=== PATIENT | female | born 1985 | race Caucasian/White ===

== ENCOUNTER 2021-12-06 11:29 | Inpatient (IN) | payer MEDICAID ==
[~2021-12-06] VITALS: Ht 160.1 cm; Wt 95.5 kg
[~2021-12-06 11:29] MED LIST: MOTRIN 800800 MG/TAB PO; PERCOCET 325 MG1 TA2 PO
[2021-12-07] VITALS (22 sets, daily range): BP systolic 104–151; BP diastolic 57–96; PULSE 80–100; TEMP 97–97.9
[2021-12-07] MEDS ORDERED: PRENATAL TABLET PO (06:50)
[2021-12-07 06:53] LABS: BASO % 0.2 % (0.0-2.0); EOS # 0.1 K/mm3 (0.0-0.7); EOS % 0.5 % (0.0-4.0); GRAN # 8.5 K/mm3 (1.4-6.5); HEMATOCRIT 38.7 % (37.0-47.0); HEMOGLOBIN 13.4 g/dl (12.5-16.0); LYMPH % 17.4 % (20.0-51.0); MEAN CELL VOLUME 86 fl (80.0-100.0); MEAN CORPUSCULAR HEMOGLOBIN 30 pg (27-31); MEAN CORPUSCULAR HGB CONC 35 g/dl (33.0-37.0); MEAN PLATELET VOLUME 9.8 fl (7.4-10.4); MONO # 0.9 K/mm3 (0.1-0.6); PLATELET COUNT 245 K/mm3 (130-400); RED BLOOD COUNT 4.49 M/mm3 (4.10-5.30)
[2021-12-08] VITALS: BP 143/72; PULSE 96; TEMP 98.5
[2021-12-08 04:18] VITALS: BP 122/73; PULSE 86; TEMP 98.4
[2021-12-08 08:15] VITALS: BP 136/79; PULSE 91; TEMP 98.3
[2021-12-08] MEDS ORDERED: IBU600 MG PO (08:17)
[2021-12-08] MEDS ORDERED: ROXICODONE 55 MG/TAB PO (08:18)
--- NOTE | 2021-12-08 09:05 | NUR ---
Initial visit; Parents thanked B[employer] for looking in on them and offering congratulations and God's blessings for the of their daughter. B[facility] thanked family for choosing [place].
[2021-12-08 17:16] VITALS: BP 129/84; PULSE 94; TEMP 97.9
[2021-12-08 21:30] VITALS: BP 133/89; PULSE 86; TEMP 97.7
[2021-12-09 08:30] VITALS: BP 123/79; PULSE 84; TEMP 98.2
== END 2021-12-09 11:30 | disposition home or self-care (01) | DRG 788 ==
LOC: OB 12-07 05:34
PROVIDERS: ADMIT Obstetrics & Gynecology
PROC: 10D00Z1 Extraction of Products of Conception, Low, Open Approach (ICD-10-PCS; principal; 2021-12-07)
DX: O34.211 Maternal care for low transverse scar from previous cesarean delivery (principal); O16.4 Unspecified maternal hypertension, complicating childbirth; Z86.16 Personal history of COVID-19; Z37.0 Single live birth; Z3A.39 39 weeks gestation of pregnancy
CPT/HCPCS: J0171; J1100; J1885; J2370; J2405; J2590; J7120